=== PATIENT | female | born 1960 | race Hispanic/Latino ===

== ENCOUNTER 2020-10-09 16:33 | Emergency (ER) | payer OTHER, SELFPAY ==
[2020-10-09] MEDS ORDERED: IPRATROPIUM 0.02% NEBU 2.5 ML IH ONE (16:43)
[2020-10-09] MEDS ORDERED: ALBUTEROL 2.5 MG/3 ML NEBU IH ONE (16:43)
--- NOTE | 2020-10-09 16:45 | Event Note ---
ED Screening Note ED Screening Note: Patient is visiting from [place] visiting a sick family member She has a history of COPD and states that she is trying to attempt to quit smoking She states she uses albuterol inhaler, nebulizer machine, she states that she also uses 1 other inhaler She states that her shortness of breath has been worsening she has chest tightness and wheezing She states she also has a productive cough Patient states that she believes she may have had a subjective fever last night Poor air movement, wheezing on exam This initial assessment/diagnostic orders/clinical plan/treatment(s) is/are subject to change based on patients health status, clinical progression and re- assessment by fellow clinical providers in the ED. Further treatment and workup at subsequent clinical providers discretion. Patient/guardian urged not to elope from the ED as their condition may be serious if not clinically assessed and managed. Initial orders include: Labs, x-ray, meds
[2020-10-09] MEDS ORDERED: MAGNESIUM SULFATE 2 GM/50 ML BAG IV ONE (17:11)
[2020-10-09] MEDS ORDERED: methylPREDNISolone Sod Succinate 125 MG/2 ML INJ IV ONE (17:11)
--- NOTE | 2020-10-09 17:21 | Emergency Department Report ---
ED Shortness of Breath HPI - General Chief Complaint: Dyspnea/Respdistress Stated Complaint: DIFF BREATHING Time Seen by Provider: 10/09/20 16:43 Source: patient Mode of arrival: Ambulatory Limitations: No Limitations - History of Present Illness Initial Comments: 59-year-old female, history of COPD (not on home O2), hypertension, diabetes, presents to ED with 2-day history of shortness of breath. Patient has been using her inhaler without relief. She reports chronic cough, no fever, no chest pain. Patient states she is not on home O2. Patient denies any known contact with anyone who is tested positive for COVID-19. Patient states she has not yet received the COVID-19 vaccine. Patient states she lives in [place]. She and 2 other family members drove down to [place] to visit family on Mother's Day weekend and are now headed back to [place]. Patient believes the warmer weather is what has triggered her breathing issues. Patient needed to stop here in [place] secondary to her difficulty breathing. MD Complaint: shortness of breath -: days(s) (2) Severity: moderate Consistency: constant Improves With: bronchodilators Worsens With: nothing, exertion Known History Of: COPD Associated Symptoms: cough Treatments Prior to Arrival: bronchodilator - Related Data Home Oxygen Therapy: No Allergies Allergy/AdvReac Type Severity Reaction Status Date / Time No Known Allergies Allergy Unverified 10/09/20 16:37 ED Review of Systems ROS: Stated complaint: DIFF BREATHING Other details as noted in HPI Comment: All other systems reviewed and negative Constitutional: denies: chills, fever Respiratory: cough (chronic, no change), shortness of breath, wheezing Cardiovascular: denies: chest pain ED Past Medical Hx - Past Medical History Hx Diabetes: Yes Hx COPD: Yes - Surgical History Additional Surgical History: EYES- CATARACTS, CYST ON TAILBONE. - Social History Smoking Status: Current Every Day Smoker ED Physical Exam - General Limitations: No Limitations General appearance: alert - Head Head exam: Present: atraumatic - Eye Eye exam: Present: normal appearance - ENT ENT exam: Present: mucous membranes moist - Neck Neck exam: Present: normal inspection - Respiratory Respiratory exam: Present: respiratory distress, wheezes, other (Tachypneic) - Cardiovascular Cardiovascular Exam: Present: normal rhythm, tachycardia - GI/Abdominal GI/Abdominal exam: Present: soft. Absent: distended, tenderness - Extremities Exam Extremities exam: Present: normal inspection. Absent: pedal edema, calf tenderness - Neurological Exam Neurological exam: Present: alert, oriented X3 - Psychiatric Psychiatric exam: Present: normal affect, normal mood - Skin Skin exam: Present: warm, dry, intact, normal color ED Course Vital Signs 10/09/20 10/09/20 10/09/20 16:39 16:53 17:01 Temperature 99.3 F Pulse Rate 117 H 113 H Pulse Rate [ Anterior Bilateral Throughout] Respiratory 26 H 19 16 Rate Respiratory Rate [Anterior Bilateral Throughout] Blood Pressure 151/84 157/74 O2 Sat by Pulse 93 91 Oximetry 10/09/20 10/09/20 10/09/20 17:31 17:49 17:52 Temperature Pulse Rate 108 H Pulse Rate [ 106 H Anterior Bilateral Throughout] Respiratory 13 Rate Respiratory 22 Rate [Anterior Bilateral Throughout] Blood Pressure 157/74 O2 Sat by Pulse 92 87 Oximetry 10/09/20 18:01 Temperature Pulse Rate 100 H Pulse Rate [ Anterior Bilateral Throughout] Respiratory 11 L Rate Respiratory Rate [Anterior Bilateral Throughout] Blood Pressure 102/59 O2 Sat by Pulse 91 Oximetry ED Medical Decision Making - Lab Data Result diagrams: 10/09/20 16:58 10/09/20 16:58 - Radiology Data Radiology results: report reviewed, image reviewed - Medical Decision Making 59-year-old female, history of COPD to ED with difficulty breathing. Lowest O2 sat 87% on room air while at rest. Diffuse wheezing present. WBCs elevated at 15. Chest x-ray shows bibasilar infiltrates. Patient given mag sulfate, Solu- Medrol, albuterol and atrovent nebs. Blood cultures also drawn and patient given Rocephin and azithromycin. COVID-19 markers have been sent. Patient will be admitted to hospitalist, Dr. Fofana, for further management. - Differential Diagnosis COPD, pneumonia, COVID-19 Critical Care Time: Yes Critical care time in (mins) excluding proc time.: 35 Critical care attestation.: If time is entered above; I have spent that time in minutes in the direct care of this critically ill patient, excluding procedure time. Critical Care Time: 35 MIN ED Disposition Clinical Impression: COPD with acute exacerbation, Pneumonia, Suspected 2019 novel coronavirus infection Disposition: OP ADMIT IP TO THIS HOSP Is pt being admited?: Yes Condition: Stable Instructions: Chronic Obstructive Pulmonary Disease (ED), Bacterial Pneumonia (ED) Time of Disposition: 17:56
[2020-10-09 17:22] LABS: Basophils # (Auto) 0.1 K/mm3 (0.0-0.1); Basophils % (Auto) 0.4 % (0.0-1.8); Eosinophils # (Auto) 0.1 K/mm3 (0.0-0.4); Eosinophils % (Auto) 0.3 % (0.0-4.3); Hematocrit 34.1 % (30.3-42.9); Hemoglobin 11.6 gm/dl (10.1-14.3); Lymphocytes # (Auto) 2.1 K/mm3 (1.2-5.4); Lymphocytes % (Auto) 13.1 % (13.4-35.0); Mean Corpuscular HGB Conc 34 % (30-34); Mean Corpuscular Volume 92 fl (79-97); Monocytes # (Auto) 1.2 K/mm3 (0.0-0.8); Monocytes % (Auto) 7.6 % (0.0-7.3); Platelet Count 314 K/mm3 (140-440); Red Cell Distribution Width 12.2 % (13.2-15.2)
[2020-10-09 17:33] LABS: Alanine Aminotransferase 48 units/L (7-56); Albumin 3.3 g/dL (3.9-5); Blood Urea Nitrogen 12 mg/dL (7-17); Calcium 8.7 mg/dL (8.4-10.2); Hemolysis Index 3
--- NOTE | 2020-10-09 17:34 | XRay Report ---
CHEST 1 VIEW 10/09/2020 5:01 PM INDICATION / CLINICAL INFORMATION: cough, sob, wheezing. COMPARISON: None available. FINDINGS: SUPPORT DEVICES: None. HEART / MEDIASTINUM: No significant abnormality. LUNGS / PLEURA: Hazy bibasilar pulmonary opacities are noted. No pleural effusion. No pneumothorax. ADDITIONAL FINDINGS: No significant additional findings. IMPRESSION: 1. Hazy bibasilar pulmonary opacities are noted and may represent developing infectious process. Clin ical correlation is needed. Signer Name: Maurilio Sparks MD Signed: 10/09/2020 5:30 PM Workstation Name: [id number]
[2020-10-09 17:42] LABS: BUN/Creatinine Ratio 20
[2020-10-09] MEDS ORDERED: cefTRIAXone/NS 1 GM/50 ML 1 GM/50 ML BAG IV ONE (17:54)
[2020-10-09] MEDS ORDERED: AZITHROMYCIN 250 MG TAB PO ONE (17:54)
--- NOTE | 2020-10-09 17:56 | History and Physical Report ---
History of Present Illness Chief complaint: I cannot breathe History of present illness: 59 YO Female with COPD, HTN, DM, Nicotine Dependence presents to ED for evaluation. Pt reports " I cant breathe". Patient states that she has experienced shortness of breath, generalized weakness, fatigue, malaise, and body aches over the past 2 days with persistently worsening symptoms over the same timeframe. Patient states that shortness of breath has not improved with increasing bronchodilator usage. Patient reports that she is traveling from [place] back to [place] after visiting family for Mother's Day weekend and experie nced the aforementioned symptoms. Patient transported to [facility] via private vehicle for further care and evaluation of the aforementioned symptoms. Patient seen and evaluated in the emergency department. All lab and imaging studies reviewed. Patient found to be using accessory muscles to breathe. Patient is unable to ambulate more than 5 feet without stopping due to shortness of breath. Patient found to have a pulse oximetry of 87% on room air which is consistent with acute hypoxemic respiratory failure. Chest x-ray revealed bilateral pneumonia. Patient also found to have sepsis. Patient admitted to medical floor and initiated on sepsis protocol as well as coronavirus protocol. Patient denies fever, chills, chest pain, palpitation, skin rash, recent ill contacts, or known exposure to COVID-19. Patient has not received the coronavirus vaccine. No prior admission for review. No medication listed at time of admission for reconciliation. Advanced care planning conducted in ED. Past History Past Medical History: COPD, diabetes, hypertension Past Surgical History: cataract removal Social history: single Family history: diabetes, hypertension Medications and Allergies Allergies Allergy/AdvReac Type Severity Reaction Status Date / Time No Known Allergies Allergy Unverified 10/09/20 16:37 Active Meds: Active Medications Ceftriaxone Sodium (Rocephin/Ns 1 Gm/50 Ml) 1 gm in 50 mls @ 100 mls/hr IV ONCE ONE; Protocol Stop: 10/09/20 18:23 Review of Systems Constitutional: fatigue, weakness, malaise, no weight loss, no weight gain, no fever Breasts: no change in shape, no swelling, no mass Cardiovascular: no chest pain, no orthopnea Respiratory: shortness of breath, no cough, no congestion, no wheezing Gastrointestinal: no abdominal pain, no nausea, no vomiting, no diarrhea, no constipation Genitourinary Female: no pelvic pain, no flank pain, no dysuria, no urinary frequency, no urgency Rectal: no pain, no incontinence Musculoskeletal: no neck stiffness, no neck pain, no arm numbness/tingling, no shooting leg pain Integumentary: no rash, no pruritis, no redness, no sores, no wounds Neurological: no head injury, no transient paralysis, no paralysis, no weakness, no parathesias, no numbness, no seizures Psychiatric: no anxiety, no change in sleep habits, no sleep disturbances, no hypersomnia, no change in appetite, no change in libido Endocrine: no cold intolerance, no heat intolerance, no excessive thirst, no polydipsia, no polyuria, no nocturia Hematologic/Lymphatic: no easy bruising, no lymphadenopathy, no lymphedema Allergic/Immunologic: no anaphylaxis Exam - Constitutional Vitals: Temp Pulse Resp BP Pulse Ox 99.3 F 106 H 22 157/74 87 10/09/20 16:39 10/09/20 17:52 10/09/20 17:52 10/09/20 17:31 10/09/20 17:49 General appearance: Present: mild distress - EENT Eyes: Present: PERRL ENT: hearing intact, clear oral mucosa - Neck Neck: Present: supple, normal ROM - Respiratory Respiratory effort: labored, accessory muscle use, stridor Respiratory: bilateral: diminished, rhonchi - Cardiovascular Heart Sounds: Present: S1 & S2. Absent: rub, click - Extremities Extremities: pulses symmetrical, No edema Peripheral Pulses: abnormal (Capillary refill greater than 3.5 seconds) - Abdominal General gastrointestinal: Present: soft, non-tender, non-distended, normal bowel sounds Female genitourinary: Present: normal - Integumentary Integumentary: Present: dry, erythema, clammy, decreased turgor - Musculoskeletal Musculoskeletal: generalized weakness - Psychiatric Psychiatric: appropriate mood/affect, intact judgment & insight - Neurologic Neurologic: CNII-XII intact, moves all extremities Results - Labs CBC & Chem 7: 10/09/20 16:58 10/09/20 16:58 Labs: Abnormal lab results 10/09/20 10/09/20 Range/Units 16:58 16:58 WBC 15.6 H (4.5-11.0) K/mm3 RDW 12.2 L (13.2-15.2) % Lymph % (Auto) 13.1 L (13.4-35.0) % [place] % (Auto) 7.6 H (0.0-7.3) % [place] # (Auto) 1.2 H (0.0-0.8) K/mm3 Seg Neutrophils % 78.6 H (40.0-70.0) % Seg Neutrophils # 12.3 H (1.8-7.7) K/mm3 Sodium 134 L (137-145) mmol/L Glucose 161 H (65-100) mg/dL Alkaline Phosphatase 131 H (35-129) units/L Albumin 3.3 L (3.9-5) g/dL Assessment and Plan - Patient Problems (1) Sepsis Current Visit: Yes Status: Acute Plan to address problem: Sepsis protocol: Chest x-ray, CBC, CMP, IV antibiotic therapy, blood culture, serial lactic acid level, maintain mean arterial pressure greater than or equal to 65. Monitor urine output every shift, monitor fluid balance. Hold IV fluid resuscitation therapy this time due to increased risk of worsening symptoms due to pulmonary congestion. (2) Acute respiratory failure Current Visit: Yes Status: Acute Qualifiers: Respiratory failure complication: hypoxia Qualified Code(s): J96.01 - Acute respiratory failure with hypoxia Plan to address problem: Supplemental oxygen, pulse oximetry, nebulizer therapy, CT angio chest, (3) Hyponatremia Current Visit: Yes Status: Acute Plan to address problem: IV fluid resuscitation as clinically indicated, repeat BMP in a.m. (4) Pneumonia Current Visit: No Status: Acute Plan to address problem: Pneumonia protocol: Chest x-ray, CBC, CMP, IV antibiotic therapy, supplemental oxygen, pulse oximetry, blood culture. (5) Suspected 2019 novel coronavirus infection Current Visit: No Status: Acute Plan to address problem: Coronavirus protocol: IV antibiotic therapy, IV steroid therapy, contact precautions, isolation precautions, vitamin C therapy, vitamin D therapy, zinc therapy, therapy, prophylactic anticoagulation. Coronavirus PCR ordered and is pending at time of admission. (6) DVT prophylaxis Current Visit: Yes Status: Acute Plan to address problem: SCD to bilateral lower extremities while in bed, prophylactic anticoagulation (7) Advance care planning Current Visit: Yes Status: Acute Plan to address problem: Disease education conducted, care plan discussed, diagnosis discussed, patient is full code, patient knowledges understanding and agree with care plan, +30 minutes.
[2020-10-09] MEDS ORDERED: ACETAMINOPHEN 325 MG TAB PO PRN ×2 (17:57→18:01)
[2020-10-09] MEDS ORDERED: ALBUTEROL 2.5 MG/3 ML NEBU IH PRN (17:57)
[2020-10-09] MEDS ORDERED: ONDANSETRON 4 MG/2 ML INJ IV PRN (17:57)
[2020-10-09] MEDS ORDERED: AZITHROMYCIN/NS 500 MG/250 ML 500 MG/250 ML BAG IV SCH (18:00)
[2020-10-09] MEDS ORDERED: HYDROmorphone 1 MG/1 ML INJ IV PRN (18:01)
[2020-10-09 18:31] VITALS: BP 102/59
[2020-10-09 18:59] LABS: C-Reactive Protein 13.8 mg/dL (0.00-1.30)
[2020-10-09] MEDS ORDERED: HEPARIN 5,000 UNIT/1 ML VIAL SUB-Q SCH (22:00)
[2020-10-09] MEDS ORDERED: ASCORBIC ACID 500 MG TAB PO SCH (22:00)
[2020-10-09] MEDS ORDERED: ZINC SULFATE 220 MG CAP PO SCH (22:00)
[2020-10-10] MEDS ORDERED: methylPREDNISolone Sod Succinate 40 MG/1 ML INJ IV SCH (02:00)
[2020-10-10] MEDS ORDERED: cefTRIAXone/NS 2 GM/100 ML 2 GM/100 ML BAG IV SCH (06:00)
[2020-10-10] MEDS ORDERED: CHOLECALCIFEROL (VIT D3) 1000 UNIT (25 mcg) TAB PO SCH (10:00)
== END 2020-10-09 21:10 | disposition left against medical advice (07) ==
LOC: ED 16:33 → UNDOADMIN 17:57 → 3A 17:57
DX: J44.1 Chronic obstructive pulmonary disease with (acute) exacerbation (principal); Z20.822 Contact with and (suspected) exposure to COVID-19; J18.9 Pneumonia, unspecified organism; E11.9 Type 2 diabetes mellitus without complications; F17.200 Nicotine dependence, unspecified, uncomplicated; Z98.890 Other specified postprocedural states
CPT/HCPCS: 36415; 71045; 80053; 82140; 82728; 83615; 84145; 85025; 85379; 86140; 86850; 86900; 86901; 87040; 94640; 96365; 96367; 96375; 99291; J0696; J1170; J2930; J3475; 94644